=== PATIENT | male | born 1935 | race Caucasian/White ===

== ENCOUNTER → 2020-03-03 | Outpatient (CLI) | payer MEDICARE, OTHER ==
[~2020-03-03] MED LIST: ALBU6.7H8 INH; ASPI-496 PO; ATOR20TA37 PO; FLUT12AE2 INH; HYDR25TA6 PO; LOSA50TA14 PO; OXYC10TA6 PO; SPIR25TA5 PO
[2020-03-03 14:36] LABS: BASOPHILS # (AUTO) 0.02 x10^3/uL (0-0.1); BASOPHILS % (AUTO) 0 % (0-1); EOSINOPHILS # (AUTO) 0.18 x10^3/uL (0-0.4); EOSINOPHILS % (AUTO) 3 % (1-7); LYMPHOCYTES # (AUTO) 0.88 x10^3/uL (1-3.4); LYMPHOCYTES % (AUTO) 17 % (22-44); MD NO; MEAN CORPUSCULAR HEMOGLOBIN 32.5 pg (27.5-34.5); MEAN CORPUSCULAR HGB CONC 33.1 g/dL (33.2-36.2); MEAN CORPUSCULAR VOLUME 98.3 fL (81-97); MEAN PLATELET VOLUME 7.5 fL (7.4-10.4); MONOCYTES # (AUTO) 0.48 x10^3/uL (0.2-0.8); MONOCYTES % (AUTO) 9 % (2-9); NEUTROPHILS # (AUTO) 3.63 x10^3/uL (1.8-6.8); NEUTROPHILS % (AUTO) 70 % (42-75); PLATELET COUNT 238 x10^3/uL (130-400); RED BLOOD COUNT 4.47 x10^6/uL (4.38-5.82); RED CELL DISTRIBUTION WIDTH 14.7 % (9.4-14.8)
[2020-03-03 14:47] LABS: ALANINE AMINOTRANSFERASE 33 U/L (12-78); ALBUMIN 3.5 g/dL (3.4-5.0); ANION GAP 8 mmol/L (5-15); CALCIUM 9.1 mg/dL (8.5-10.1); CHLORIDE 107 mmol/L (98-107); CREATININE 1.33 mg/dL (0.7-1.3)
[2020-03-03 14:49] LABS: ALKALINE PHOSPHATASE 66 U/L (45-117); BILIRUBIN,TOTAL 0.4 mg/dL (0.2-1.0)
== END | disposition home or self-care (01) ==
LOC: STAR 13:10
PROVIDERS: ATTEND Surgery
DX: Z01.818 Encounter for other preprocedural examination (principal); J98.4 Other disorders of lung; M47.814 Spondylosis without myelopathy or radiculopathy, thoracic region; I44.7 Left bundle-branch block, unspecified; I44.0 Atrioventricular block, first degree
CPT/HCPCS: 36415; 71046; 80053; 85025; 93005

== ENCOUNTER 2020-03-12 08:39 | Inpatient (IN) | payer MEDICARE ==
[~2020-03-12] VITALS: Ht 177.8 cm; Wt 86.0 kg
[2020-03-12] MEDS ORDERED: SUCCINYLCHOLINE 20 MG/ML, 10ML ONE (10:17)
[2020-03-12] MEDS ORDERED: ROCURONIUM 10MG/ML,5ML ONE (10:17)
[2020-03-12] MEDS ORDERED: PROPOFOL 10 MG/ML, 20ML ONE (10:17)
[2020-03-12] MEDS ORDERED: LACTATED RINGERS 1,000 ML IV SCH (10:29)
[2020-03-12] MEDS ORDERED: CHLORHEXIDINE 15 ML UDC MM ONE (10:30)
[2020-03-12] MEDS ORDERED: ASPI-650 PO (10:31)
[2020-03-12] MEDS ORDERED: PAPAVERINE 30 MG/ML, 2ML ONE (10:38)
[2020-03-12] MEDS ORDERED: LIDOCAINE 1%, 20ML ONE (10:38)
[2020-03-12] MEDS ORDERED: PROTAMINE SULFATE 10 MG/ML, 5ML ONE (10:38)
[2020-03-12] MEDS ORDERED: HEPARIN 1,000 UNITS/ML, 10ML ONE (10:38)
[2020-03-12] MEDS ORDERED: EPINEPHRINE 1 MG/ML, 1ML ONE (11:34)
[2020-03-12] MEDS ORDERED: VASOPRESSIN 20 UNIT/ML, 1ML ONE (11:35)
[2020-03-12] MEDS ORDERED: FENTANYL PF 250 MCG/5ML ONE (11:36)
[2020-03-12] MEDS ORDERED: CEFAZOLIN 1,000 MG ONE (12:31)
[2020-03-12] MEDS ORDERED: PHENYLEPHRINE 10 MG/ML ONE (12:31)
[2020-03-12] MEDS ORDERED: hydrALAzine 20 MG/ML, 1ML ONE (12:31)
[2020-03-12] MEDS ORDERED: DEXAMETHASONE 4 MG/ML, 1ML ONE (12:47)
[2020-03-12] MEDS ORDERED: LABETALOL 5MG/ML, 20ML IV PRN (13:30)
[2020-03-12] MEDS ORDERED: hydrALAzine 20 MG/ML, 1ML IV PRN (13:30)
[2020-03-12] MEDS ORDERED: PROMETHAZINE 25 MG/ML, 1ML IVPush PRN (13:30)
[2020-03-12] MEDS ORDERED: ONDANSETRON 2MG/ML, 2ML IVPush PRN (13:30)
[2020-03-12] MEDS ORDERED: morphine SULFATE 10 MG/ML, 1ML IVPush PRN (13:30)
[2020-03-12] MEDS ORDERED: ONDANSETRON 2MG/ML, 2ML ONE (14:09)
[2020-03-12] MEDS ORDERED: LABETALOL 5MG/ML, 20ML ONE (14:43)
[2020-03-12] MEDS ORDERED: OXYcodone 5 MG/5 ML ORAL.SOL UDC ONE (14:49)
[2020-03-12] MEDS ORDERED: FENTANYL PF 100 MCG/2ML ONE ×2 (14:49→16:31)
[2020-03-12] MEDS: FENTANYL PF 100 MCG/2ML IV PRN ×4 (14:52→16:46)
[2020-03-12] MEDS: OXYcodone 5 MG/5 ML ORAL.SOL UDC PO PRN ×2 (16:12→16:14)
[2020-03-12] MEDS ORDERED: OXYcodone IR 5MG TABLET PO PRN (18:00)
[2020-03-12] MEDS ORDERED: ALBUTEROL SULFATE 2.5 MG/3 ML NPPB PRN (18:00)
[2020-03-12] MEDS: LACTATED RINGERS 1,000 ML IV SCH (18:11)
[2020-03-12] MEDS: MORPHINE SULFATE 4 MG/ML, 1ML IVPush PRN ×2 (19:07→23:04)
[2020-03-12 20:35] VITALS: BP 123/59
[2020-03-12] MEDS: ACETAMINOPHEN 325 MG TABLET PO PRN (20:59)
[2020-03-12] MEDS: OXYcodone IR 5MG TABLET PO PRN (21:00)
[2020-03-12] MEDS: BUDESONIDE 0.5 MG/2 ML INHA NPPB SCH (21:00)
[2020-03-12] MEDS ORDERED: ATORVASTATIN 20 MG TABLET PO SCH (21:00)
[2020-03-12] MEDS: SODIUM CHLORIDE FLUSH 10ML SYR IVF SCH (21:12)
[2020-03-13] VITALS: BP 132/70
[2020-03-13] MEDS: OXYcodone IR 5MG TABLET PO PRN (03:15)
[2020-03-13] MEDS: ACETAMINOPHEN 325 MG TABLET PO PRN (03:16)
[2020-03-13 03:48] VITALS: BP 133/64
[2020-03-13] MEDS: LACTATED RINGERS 1,000 ML IV SCH ×2 (04:01→14:00)
[2020-03-13 06:38] VITALS: BP 139/88
[2020-03-13] MEDS: HEPARIN 5,000 UNITS/ML, 1ML SQ SCH ×2 (06:46→15:31)
[2020-03-13] MEDS ORDERED: ASPIRIN 325 MG TABLET PO SCH (09:00)
[2020-03-13] MEDS: BUDESONIDE 0.5 MG/2 ML INHA NPPB SCH (09:00)
[2020-03-13] MEDS ORDERED: HYDROCHLOROTHIAZIDE 25 MG TABLET PO SCH (09:00)
[2020-03-13] MEDS ORDERED: SPIRONOLACTONE 25 MG TABLET PO SCH (09:00)
[2020-03-13] MEDS ORDERED: LOSARTAN 50MG TABLET PO SCH (09:00)
[2020-03-13] MEDS: SODIUM CHLORIDE FLUSH 10ML SYR IVF SCH (09:47)
[2020-03-13 12:39] VITALS: BP 144/54
[2020-03-13] MEDS ORDERED: HYDR-3240 PO (15:18)
== END 2020-03-13 15:52 | disposition home or self-care (01) | DRG 39 ==
LOC: ORIP 10:00 → 4NE 17:17
PROVIDERS: ADMIT Surgery; ATTEND Surgery
PROC: 03CL0ZZ Extirpation of Matter from Left Internal Carotid Artery, Open Approach (ICD-10-PCS; 2020-03-12)
PROC: 03UN0KZ Supplement Left External Carotid Artery with Nonautologous Tissue Substitute, Open Approach (ICD-10-PCS; 2020-03-12)
PROC: 03UL0KZ Supplement Left Internal Carotid Artery with Nonautologous Tissue Substitute, Open Approach (ICD-10-PCS; 2020-03-12)
PROC: 03CN0ZZ Extirpation of Matter from Left External Carotid Artery, Open Approach (ICD-10-PCS; principal; 2020-03-12 12:00)
DX: I65.22 Occlusion and stenosis of left carotid artery (principal); Z88.0 Allergy status to penicillin
CPT/HCPCS: 36415; 85347; 86850; 86900; 94640; G0378; J0171; J0690; J1100; J1644; J2405; J2704; J2720; J3010; J7626; C1768; J0330; J0360; J2270; J2370; J2440; J7120; U0001-CS